=== PATIENT | female | born 1970 | race Two or more races ===

== ENCOUNTER 2017-09-23 00:51 | Emergency (ER) | payer OTHER ==
[~2017-09-23] VITALS: Ht 162.6 cm; Wt 81.6 kg
[2017-09-23] MEDS ORDERED: HUMALOG100 UNIT/1 (01:14)
[2017-09-23] MEDS ORDERED: ZOFRAN4 MG PO (08:03)
[2017-09-23] MEDS ORDERED: PEPCID40 MG PO (08:03)
== END 2017-09-23 08:17 | disposition home or self-care (01) ==
LOC: ER 00:51
DX: R11.11 Vomiting without nausea (principal); F10.129 Alcohol abuse with intoxication, unspecified; E11.9 Type 2 diabetes mellitus without complications

== ENCOUNTER 2022-12-30 12:01 | Outpatient (CLI) | payer OTHER ==
[~2022-12-30 12:01] MED LIST: HUMALOG100 UNIT/1; PEPCID40 MG PO; ZOFRAN4 MG PO
== END 2022-12-30 12:14 | disposition home or self-care (01) ==
LOC: RAD 12:01
PROVIDERS: ATTEND Internal Medicine
DX: I20.9 Angina pectoris, unspecified (principal); I15.8 Other secondary hypertension

== ENCOUNTER 2023-10-18 08:11 | Outpatient (CLI) | payer OTHER | END 2023-10-18 08:13 | disposition home or self-care (01) | LOC: NUCLEAR 08:11 | PROVIDERS: ATTEND Internal Medicine Cardiovascular Disease | DX: I20.9 Angina pectoris, unspecified (principal); I11.9 Hypertensive heart disease without heart failure; R06.9 Unspecified abnormalities of breathing ==